=== PATIENT | female | born 2000 | race Caucasian/White ===

== ENCOUNTER → 2022-07-12 | Outpatient (CLI) | payer BC ==
--- NOTE | 2022-07-12 16:48 | Diagnostic Imaging Report ---
INDICATION: -induced hypertension. TECHNIQUE: Multiple real-time grayscale images were obtained over the gravid uterus. COMPARISON: None GESTATIONAL AGE: 28 weeks and 3 days COMPARISON: None. Biophysical Profile Score: Movement: 2 Breathin Tone: 2 Fluid: 2 Total: 02/19 Heart Rate: 144 BPM Presentation is cephalic. Placenta is anterior, not low-lying. CELIO is 18.2cm. The single largest vertical pocket is 7.5 cm. Maternal adnexa were not imaged. Biometrical measurements are as follows: Biparietal 7.92 cm, age 31 weeks 6 days. Head circumference 27.92 cm, age 30 weeks 4 days. Abdominal circumference 26.42 cm, age 30 weeks 4 days. Femur length 5.80 cm, age 30 weeks 3 days. Sonographic estimate age: 30 weeks 6 days. Sonographic estimated date of delivery: 09/14/2022. Estimated Weight: 1599 gm (+/- 234 gm). LMP percentile: 97%. heart rate: 144 beats per minute. number: 1 of 1. IMPRESSION: 1. Single live intrauterine . 2. Normal biophysical profile score. 3. Estimated weight is greater than the 95th percentile. This does raise concern for macrosomia. Follow-up is advised. Dictated by: Dictated on workstation # [id number]
== END ==
LOC: RAD 12:55
PROVIDERS: ATTEND Obstetrics & Gynecology
DX: O13.9 Gestational [pregnancy-induced] hypertension without significant proteinuria, unspecified trimester (principal); Z3A.00 Weeks of gestation of pregnancy not specified
CPT/HCPCS: 76805; 76819